=== PATIENT | female | born 1930 | race Caucasian/White ===

== ENCOUNTER 2019-05-18 10:35 | Observation (INO) | payer MEDICARE, OTHER ==
[2019-05-18 11:16] LABS: ABSOLUTE LYMPHOCYTES (AUTO) 1.4 10^3/uL (0.5-4.7); ABSOLUTE MONOCYTES (AUTO) 1.1 10^3/uL (0.1-1.4); ABSOLUTE NEUT (AUTO) 11.2 10^3/uL (1.7-8.2); BASOPHILS % (AUTO) 0.4 % (0-2); HEMATOCRIT 36.2 % (36.0-47.0); HEMOGLOBIN 11.9 g/dL (12.0-15.5); MEAN CORPUSCULAR HEMOGLOBIN 27.9 pg (27.0-33.4); MEAN CORPUSCULAR HGB CONC 32.9 g/dL (32.0-36.0); MEAN CORPUSCULAR VOLUME 85 fl (80-97); PLATELET COUNT 168 10^3/uL (150-450); RED BLOOD COUNT 4.26 10^6/uL (3.72-5.28); RED CELL DISTRIBUTION WIDTH 15.4 % (11.5-14.0); SEGMENTED NEUTROPHILS % (AUTO) 81.6 % (42-78); TOTAL CELLS COUNTED % (AUTO) 100 %; WHITE BLOOD COUNT 13.7 10^3/uL (4.0-10.5)
--- NOTE | 2019-05-18 11:16 | ER Document Report ---
ED General - General Chief Complaint: Altered Mental Status Stated Complaint: ALTERED MENTAL STATUS Time Seen by Provider: 05/18/19 10:58 Primary Care Provider: JUANCHO HERNANDEZ [NO LOCAL MD] - Follow up as needed Information source: Patient, Relative Notes: 88-year-old woman presents to the emergency department with altered mental status and confusion. Apparently she has not eaten in the past 3 days and has become less active. Patient denies chest pain, nausea or vomiting or abdominal pain. She has a past medical history of hypothyroidism, hypertension, lower extremity edema and she lives independently. - Related Data Allergies/Adverse Reactions: No Known Allergies Allergy (Unverified 05/18/19 10:59) Past Medical History - Social History Smoking Status: Unknown if Ever Smoked Patient has suicidal ideation: No Patient has homicidal ideation: No Review of Systems - Review of Systems Notes: REVIEW OF SYSTEMS: CONSTITUTIONAL : Decreased appetite, decreased activity. EENT: Denies eye, ear, throat, or mouth pain or symptoms. Denies nasal or sinus congestion. CARDIOVASCULAR: Denies chest pain. RESPIRATORY: Denies cough, cold, or chest congestion. Denies shortness of breath, difficulty breathing, or wheezing. GASTROINTESTINAL: Denies abdominal pain. Denies nausea, vomiting, or diarrhea. Denies constipation. Last BM: GENITOURINARY: Denies difficulty urinating, painful urination, burning, frequency, or blood in urine. FEMALE GENITOURINARY: Denies vaginal bleeding, abnormal or irregular periods. LMP: MUSCULOSKELETAL: Denies neck or back pain or joint pain or swelling. SKIN: Denies rash or skin lesions. HEMATOLOGIC : Denies easy bruising or bleeding. LYMPHATIC: Denies swollen, enlarged glands. NEUROLOGICAL: +altered mental status , no loss of consciousness. side. Denies problems with gait or speech. Denies sensory or motor loss. PSYCHIATRIC: Denies anxiety or stress or depression. ALL OTHER SYSTEMS REVIEWED AND NEGATIVE. Physical Exam - Vital signs Vitals: Resp BP Pulse Ox 26 H 149/71 H 92 05/18/19 10:43 05/18/19 10:43 05/18/19 10:43 - Notes Notes: Reviewed vital signs and nursing note as charted by RN. CONSTITUTIONAL: Chronically ill appearing elderly female in no acute distress HEAD: Normocephalic; atraumatic; No swelling EYES: PERRL; Conjunctivae clear, no drainage; EOMI ENT: External ears without lesions; External auditory canal is patent; TMs without erythema, landmarks clear and well visualized; no rhinorrhea; Pharynx without erythema or lesions, no tonsillar hypertrophy, airway patent, mucous membranes pink and moist NECK: Supple, no cervical lymphadenopathy, no masses CARD: Tachycardic, no gallops, decreased capillary refill , symmetric pulses RESP: Decreased air movement right compared to left.muscle use. The lungs are clear to auscultation bilaterally, no wheezing, no rales, no rhonchi. ABD/GI: Normal bowel sounds; non-distended; soft, non-tender, no rebound, no guarding, no palpable organomegaly EXT: Normal ROM in all joints; non-tender to palpation; no effusions, no edema SKIN: Normal color for age and race; warm; dry; good turgor; no acute lesions noted NEURO: No facial asymmetry; Moves all extremities equally; Motor and sensory function intact Course - Re-evaluation Re-evalutation: 05/18/19 14:22 88-year-old continued difficulty now fever of 101, rectal Tylenol ordered, 3 2 L nasal cannula O2 also ordered, DuoNeb nebulizer treatment. The patient is being admitted to the hospital for possible sepsis, elevated lactate, white count elevated, now fever and history of confusion. Labs are positive for UTI, chest x-ray reveals right hemidiaphragm elevation and may require CT scan to clarify findings. I have spoken to the hospitalist, Dr. Linda patient will be admitted to the hospital for further evaluation and treatment. - Vital Signs Vital signs: Temp Pulse Resp BP Pulse Ox 101.2 F H 27 H 137/61 H 93 05/18/19 13:51 05/18/19 13:01 05/18/19 13:01 05/18/19 13:01 - Laboratory Result Diagrams: 05/18/19 10:50 05/18/19 10:50 Laboratory results interpreted by me: 05/18/19 05/18/19 05/18/19 10:50 10:50 10:50 WBC 13.7 H Hgb 11.9 L RDW 15.4 H Lymph % (Auto) 10.0 L Absolute Neuts (auto) 11.2 H Seg Neutrophils % 81.6 H PT 15.9 H Carbonic Acid ABG pH ABG pCO2 ABG pO2 ABG O2 Saturation Est GFR (MDRD) Non-Af 54 L Glucose 126 H Lactic Acid Calcium 10.5 H Total Bilirubin 1.5 H Urine Protein Urine Blood Leukocyte Esterase Rfl 05/18/19 05/18/19 05/18/19 10:50 11:30 11:30 WBC Hgb RDW Lymph % (Auto) Absolute Neuts (auto) Seg Neutrophils % PT Carbonic Acid 0.93 L ABG pH 7.49 H ABG pCO2 31.0 L ABG pO2 57.4 L ABG O2 Saturation 92.2 L Est GFR (MDRD) Non-Af Glucose Lactic Acid 2.3 H Calcium Total Bilirubin Urine Protein 100 H Urine Blood MODERATE H Leukocyte Esterase Rfl LARGE H Critical Care Note - Critical Care Note Total time excluding time spent on procedures (mins): 60 - Discussed patient's status with the family and contact the hospitalist for admission. Zosyn, blood cultures lactate and sepsis 30 mL/kg IV fluids are given. Patient is not hypotensive and did appear to be dehydrated versus exam. Discharge - Discharge Clinical Impression: Dehydration, Fever area Sepsis Qualifiers: Sepsis type: sepsis due to unspecified organism Sepsis acute organ dysfunction status: without acute organ dysfunction Qualified Code(s): A41.9 - Sepsis, unspecified organism Condition: Serious Disposition: ADMITTED INPATIENT Admitting Provider: Maddi (Hospitalist) Unit Admitted: Telemetry Referrals: MARY,NO [NO LOCAL MD] - Follow up as needed
[2019-05-18 11:35] LABS: INTERNATIONAL RATION (INR) 1.26; PROTHROMBIN TIME 15.9 SEC (11.4-15.4)
[2019-05-18 11:38] LABS: ALBUMIN 3.8 g/dL (3.5-5.0); ALKALINE PHOSPHATASE 66 U/L (38-126); ANION GAP 11 (5-19); ASPARTATE AMINO TRANSFERASE 20 U/L (14-36); BILIRUBIN,DIRECT 0.4 mg/dL (0.0-0.4); BILIRUBIN,TOTAL 1.5 mg/dL (0.2-1.3); BLOOD UREA NITROGEN 19 mg/dL (7-20); CALCIUM 10.5 mg/dL (8.4-10.2); CARBON DIOXIDE 24 mmol/L (22-30); CHLORIDE 106 mmol/L (98-107); GLUCOSE 126 mg/dL (75-110); POTASSIUM 3.8 mmol/L (3.6-5.0); TOTAL PROTEIN 6.9 g/dL (6.3-8.2)
[2019-05-18] MEDS ORDERED: PIPERACILLIN SODIUM/TAZOBACTAM 4.5 GM in NORMAL SALINE 100 ML IV SCH (12:00)
[2019-05-18] MEDS: NORMAL SALINE 1000 ML 1,000 ML IV PRN ×3 (12:01→16:36)
--- NOTE | 2019-05-18 12:03 | RADIOLOGY REPORT (SQ) ---
EXAM DESCRIPTION: CHEST SINGLE VIEW COMPLETED DATE/TIME: 05/18/2019 11:42 am REASON FOR STUDY: Altered mental status COMPARISON: None. EXAM PARAMETERS: NUMBER OF VIEWS: One view. TECHNIQUE: Single frontal radiographic view of the chest acquired. RADIATION DOSE: NA LIMITATIONS: None. FINDINGS: LUNGS AND PLEURA: No opacities, masses or pneumothorax. No pleural effusion. MEDIASTINUM AND HILAR STRUCTURES: Marked elevation of the right hemidiaphragm. HEART AND VASCULAR STRUCTURES: Cardiac enlargement without failure. BONES: No acute findings. HARDWARE: None in the chest. OTHER: No other significant finding. IMPRESSION: Marked elevation of the right hemidiaphragm. Cardiac enlargement without failure. TECHNICAL DOCUMENTATION: JOB ID: [id number] [employer]- All Rights Reserved Reading location - IP/workstation name: [email or web address]
[2019-05-18 12:26] LABS: ARTERIAL BLOOD BASE EXCESS 0.7 mmol/L; ARTERIAL BLOOD FIO2 ROOM AIR; ARTERIAL BLOOD H2CO3 0.93 mmol/L (1.05-1.35); ARTERIAL BLOOD HCO3 23.1 mmol/L (20-24); ARTERIAL BLOOD O2 SATURATION 92.2 % (94-98); ARTERIAL BLOOD PH 7.49 (7.35-7.45); ARTERIAL BLOOD PO2 57.4 mmHg (80-100)
[2019-05-18 12:29] LABS: APPEARANCE,URINE TURBID; BILIRUBIN,URINE NEGATIVE (NEGATIVE); COLOR,URINE YELLOW; GLUCOSE, URINE NEGATIVE (NEGATIVE); KETONES,URINE NEGATIVE (NEGATIVE); PROTEIN,URINE 100 mg/dL (NEGATIVE); URINE SPECIFIC GRAVITY 1.014; UROBILINOGEN,URINE NEGATIVE mg/dL (<2.0)
[2019-05-18] MEDS ORDERED: ACETAMINOPHEN 325 MG TABLET PO ONE (13:52)
[2019-05-18] MEDS ORDERED: ACETAMINOPHEN 650 MG SUPP.RECT PR ONE (14:06)
[2019-05-18] MEDS ORDERED: IPRATROPIUM/ALBUTEROL 0.5-2.5 MG/3 ML AMPUL NEB ONE (14:30)
--- NOTE | 2019-05-18 15:03 | PDOC H&P ---
History of Present Illness Admission Date/PCP: KENAN YANG MD Patient complains of: weakness, confusion History of Present Illness: MARTIN GIL is a 88 year old female past medical history of hypertension, hypothyroidism and hyperlipidemia who was brought in due to increasing weakness and confusion. Daughter and bedside says that patient has been noted to be increasingly weak in the past 2 days. She said she has also been having waxing and waning confusion and that she thought that her parents were sure. Upon encounter, patient appears comfortable. She is oriented to person but thinks she is in an office. She denies chest pain, shortness of breath. In the ER she was noted to be febrile. She is also noted to have leukocytosis and urinary tract infection. Past Medical History Cardiac Medical History: Reports: Hyperlipidema, Hypertension Past Surgical History Past Surgical History: Reports: Appendectomy, Hysterectomy Social History Smoking Status: Unknown if Ever Smoked Family History Parental Family History Reviewed: Yes - No premature CAD Children Family History Reviewed: No Sibling(s) Family History Reviewed.: No Medication/Allergy Home Medications: Amlodipine Besylate/Benazepril [Amlodipine-Benazepril 5-20 mg] 1 cap PO DAILY 05/18/19 Aspirin [Ecotrin 81 mg EC Tablet] 81 mg PO DAILY 05/18/19 B2/Vit A,C & E/Lut/Zeaxanth/Mn [Icaps Tablet] 1 tab PO DAILY PRN 05/18/19 Furosemide [Lasix 20 mg Tablet] 30 mg PO DAILY 05/18/19 Levothyroxine Sodium 75 mcg PO DAILY 05/18/19 Metoprolol Succinate [Toprol Xl 25 mg Tab.sr] 1 tab PO DAILY 05/18/19 Pravastatin Sodium 20 mg PO QHS 05/18/19 Allergies/Adverse Reactions: No Known Allergies Allergy (Unverified 05/18/19 10:59) Review of Systems All systems: reviewed and no additional remarkable complaints except as stated Physical Exam Vital Signs: Temp Pulse Resp BP Pulse Ox 101.2 F H 27 H 137/61 H 93 05/18/19 13:51 05/18/19 13:01 05/18/19 13:01 05/18/19 13:01 Intake & Output 05/17/19 05/18/19 05/19/19 06:59 06:59 06:59 Intake Total 1100 Balance 1100 Weight 153 lb 14.122 oz General appearance: PRESENT: no acute distress, well-developed, well-nourished Head exam: PRESENT: atraumatic, normocephalic Eye exam: PRESENT: conjunctiva pink, EOMI, PERRLA. ABSENT: scleral icterus Ear exam: PRESENT: normal external ear exam Mouth exam: PRESENT: moist, tongue midline Neck exam: ABSENT: carotid bruit, JVD, lymphadenopathy, thyromegaly Respiratory exam: PRESENT: clear to auscultation florentin. ABSENT: rales, rhonchi, wheezes Cardiovascular exam: PRESENT: RRR. ABSENT: diastolic murmur, rubs, systolic murmur Pulses: PRESENT: normal dorsalis pedis pul GI/Abdominal exam: PRESENT: normal bowel sounds, soft. ABSENT: distended, guarding, mass, organolmegaly, rebound, tenderness Rectal exam: PRESENT: deferred Neurological exam: PRESENT: alert, awake, oriented to person, CN II-XII grossly intact. ABSENT: motor sensory deficit Results Laboratory Results: 05/18/19 10:50 05/18/19 10:50 05/18/19 05/18/19 05/18/19 10:50 10:50 10:50 WBC 13.7 H RBC 4.26 Hgb 11.9 L Hct 36.2 MCV 85 MCH 27.9 MCHC 32.9 RDW 15.4 H Plt Count 168 Seg Neutrophils % 81.6 H Carbonic Acid HCO3/H2CO3 Ratio ABG pH ABG pCO2 ABG pO2 ABG HCO3 ABG O2 Saturation ABG Base Excess FiO2 Sodium 141.1 Potassium 3.8 Chloride 106 Carbon Dioxide 24 Anion Gap 11 BUN 19 Creatinine 0.97 Est GFR ( Amer) > 60 Glucose 126 H Lactic Acid 2.3 H Calcium 10.5 H Total Bilirubin 1.5 H AST 20 Alkaline Phosphatase 66 Total Protein 6.9 Albumin 3.8 Urine Color Urine Appearance Urine pH Ur Specific [place] Urine Protein Urine Glucose (UA) Urine Ketones Urine Blood Urine RBC (Auto) 05/18/19 05/18/19 11:30 11:30 WBC RBC Hgb Hct MCV MCH MCHC RDW Plt Count Seg Neutrophils % Carbonic Acid 0.93 L HCO3/H2CO3 Ratio 24:1 ABG pH 7.49 H ABG pCO2 31.0 L ABG pO2 57.4 L ABG HCO3 23.1 ABG O2 Saturation 92.2 L ABG Base Excess 0.7 FiO2 ROOM AIR Sodium Potassium Chloride Carbon Dioxide Anion Gap BUN Creatinine Est GFR ( Amer) Glucose Lactic Acid Calcium Total Bilirubin AST Alkaline Phosphatase Total Protein Albumin Urine Color YELLOW Urine Appearance TURBID Urine pH 6.0 Ur Specific [place] 1.014 Urine Protein 100 H Urine Glucose (UA) NEGATIVE Urine Ketones NEGATIVE Urine Blood MODERATE H Urine RBC (Auto) 17 Impressions: Chest X-Ray 05/18/19 10:59 IMPRESSION: Marked elevation of the right hemidiaphragm. Cardiac enlargement without failure. Assessment and Plan - Diagnosis (1) Acute encephalopathy Is this a current diagnosis for this admission?: Yes Plan: Secondary to urinary tract infection in an elderly patient. (2) Urinary tract infection Is this a current diagnosis for this admission?: Yes Plan: Start Rocephin. Urine and blood cultures sent. (3) Hypertension Is this a current diagnosis for this admission?: Yes Plan: Hold antihypertensives for now due to recent BP on the low normal end. (4) Hypothyroidism Is this a current diagnosis for this admission?: Yes Plan: Resume Synthroid. - Time Time Spent with patient: 25-34 minutes
--- NOTE | 2019-05-18 15:04 | ADVANCED CARE ---
- Diagnosis (1) Acute encephalopathy Diagnosis Current: Yes (2) Urinary tract infection Diagnosis Current: Yes (3) Hypertension Diagnosis Current: Yes (4) Hypothyroidism Diagnosis Current: Yes Resuscitation Status: Full Code Discussion: Daughter on bedside, Leila says that she and her older brother are the patient's surrogate medical decision makers. She says that patient is a full code at this time.
[2019-05-18] MEDS: CEFTRIAXONE 1 GM/D5W RTU 1 GM/50 ML RTUPB IV SCH (16:35)
[2019-05-18] MEDS: HEPARIN SOD (PORCINE) 5,000 UNIT/ML 1 ML VIAL SUBCUT SCH (21:03)
[2019-05-18] MEDS: ATORVASTATIN CALCIUM 10 MG TABLET PO SCH (21:03)
[2019-05-18] MEDS ORDERED: (PENDING PHARMACY ID) (Pravastatin Sodium [Pravastatin Sodium] 20 MG) PO SCH (22:00)
--- NOTE | 2019-05-18 22:04 | EKG REPORT ---
SEVERITY:- ABNORMAL ECG - SINUS TACHYCARDIA LEFT ANTERIOR FASCICULAR BLOCK CONSIDER LEFT VENTRICULAR HYPERTROPHY : Confirmed by: Arnulfo Jason 18-May-2019 22:03:18
[2019-05-19] MEDS: NORMAL SALINE 1000 ML 1,000 ML IV PRN ×2 (05:49→20:08)
[2019-05-19 09:57] LABS: FREE T3 1.64 pg/mL (2.77-5.27); FREE T4 (FREE THYROXINE) 1.44 ng/dL (0.78-2.19)
[2019-05-19] MEDS ORDERED: AMLODIPINE BESYLATE 5 MG TABLET PO SCH (10:00)
[2019-05-19] MEDS ORDERED: BENAZEPRIL HCL 20 MG TABLET PO SCH (10:00)
[2019-05-19] MEDS ORDERED: (PENDING PHARMACY ID) (Amlodipine Besylate/Benazepril [Amlodipine-Benazepril 5-20 Mg] 1 CA PO SCH (10:00)
[2019-05-19] MEDS ORDERED: METOPROLOL SUCCINATE 25 MG TAB.SR.24H PO SCH (10:00)
[2019-05-19] MEDS ORDERED: (PENDING PHARMACY ID) (B2/Vit A,C & E/Lut/Zeaxanth/Mn [Icaps Tablet] 1 TAB) PO SCH (10:00)
[2019-05-19] MEDS: FUROSEMIDE 20 MG TABLET PO SCH (10:12)
[2019-05-19] MEDS: HEPARIN SOD (PORCINE) 5,000 UNIT/ML 1 ML VIAL SUBCUT SCH ×2 (10:12→21:23)
[2019-05-19] MEDS: LEVOTHYROXINE SODIUM 0.075 MG TABLET PO SCH (10:12)
[2019-05-19] MEDS: ASPIRIN 81 MG TABLET, ENT COATED PO SCH (10:12)
[2019-05-19] MEDS: IPRATROPIUM/ALBUTEROL 0.5-2.5 MG/3 ML AMPUL NEB PRN ×2 (11:25→18:16)
--- NOTE | 2019-05-19 12:43 | PDOC PROGRESS REPORT ---
Subjective Progress Note for:: 05/19/19 Subjective:: This is an 88-year-old female who was admitted for acute encephalopathy likely related to urinary tract infection. No acute event overnight. On encounter this morning, she appears more conversant and coherent. She is oriented to person and place. She knows that it is 2019. Blood cultures growing gram-negative rods 1/2 bottles. Reason For Visit: ACUTE ENCEPHALOPATHY, UTI Physical Exam Vital Signs: Temp Pulse Resp BP Pulse Ox 98.1 F 100 16 135/60 H 99 05/19/19 10:49 05/19/19 11:25 05/19/19 11:25 05/19/19 10:49 05/19/19 11:25 Intake & Output 05/18/19 05/19/19 05/20/19 06:59 06:59 06:59 Intake Total 3401 Output Total 200 Balance 3201 Weight 148 lb 2.41 oz General appearance: PRESENT: no acute distress, well-developed, well-nourished Head exam: PRESENT: atraumatic, normocephalic Eye exam: PRESENT: conjunctiva pink, EOMI, PERRLA. ABSENT: scleral icterus Ear exam: PRESENT: normal external ear exam Mouth exam: PRESENT: moist, tongue midline Neck exam: ABSENT: carotid bruit, JVD, lymphadenopathy, thyromegaly Respiratory exam: PRESENT: clear to auscultation florentin. ABSENT: rales, rhonchi, wheezes Cardiovascular exam: PRESENT: RRR. ABSENT: diastolic murmur, rubs, systolic murmur Pulses: PRESENT: normal dorsalis pedis pul GI/Abdominal exam: PRESENT: normal bowel sounds, soft. ABSENT: distended, guarding, mass, organolmegaly, rebound, tenderness Rectal exam: PRESENT: deferred Extremities exam: PRESENT: full ROM. ABSENT: calf tenderness, clubbing, pedal edema Neurological exam: PRESENT: alert, awake, oriented to person, oriented to place, oriented to time, CN II-XII grossly intact. ABSENT: motor sensory deficit Results Laboratory Results: 05/18/19 10:50 05/18/19 10:50 05/18/19 05/18/19 05/18/19 10:50 10:50 11:30 Carbonic Acid 0.93 L HCO3/H2CO3 Ratio 24:1 ABG pH 7.49 H ABG pCO2 31.0 L ABG pO2 57.4 L ABG HCO3 23.1 ABG O2 Saturation 92.2 L ABG Base Excess 0.7 FiO2 ROOM AIR Lactic Acid TSH 0.27 L Free T4 1.44 Free T3 pg/mL 1.64 L Urine Color Urine Appearance Urine pH Ur Specific [place] Urine Protein Urine Glucose (UA) Urine Ketones Urine Blood Urine RBC (Auto) 05/18/19 05/18/19 11:30 17:00 Carbonic Acid HCO3/H2CO3 Ratio ABG pH ABG pCO2 ABG pO2 ABG HCO3 ABG O2 Saturation ABG Base Excess FiO2 Lactic Acid 1.2 TSH Free T4 Free T3 pg/mL Urine Color YELLOW Urine Appearance TURBID Urine pH 6.0 Ur Specific [place] 1.014 Urine Protein 100 H Urine Glucose (UA) NEGATIVE Urine Ketones NEGATIVE Urine Blood MODERATE H Urine RBC (Auto) 17 Impressions: Chest X-Ray 05/18/19 10:59 IMPRESSION: Marked elevation of the right hemidiaphragm. Cardiac enlargement without failure. Assessment and Plan - Diagnosis (1) Acute encephalopathy Is this a current diagnosis for this admission?: Yes Plan: Resolving. Secondary to urinary tract infection in an elderly patient. (2) Urinary tract infection Is this a current diagnosis for this admission?: Yes Plan: Blood cultures growing gram-negative rods 1/2 bottles. Continue Rocephin. (3) Hypertension Is this a current diagnosis for this admission?: Yes Plan: Resume amlodipine and Toprol. (4) Hypothyroidism Is this a current diagnosis for this admission?: Yes Plan: Resumed Synthroid. - Time Time Spent with patient: 25-34 minutes
[2019-05-19] MEDS: AMLODIPINE BESYLATE 5 MG TABLET PO SCH (13:31)
[2019-05-19] MEDS: CEFTRIAXONE 1 GM/D5W RTU 1 GM/50 ML RTUPB IV SCH (17:56)
[2019-05-19] MEDS: ATORVASTATIN CALCIUM 10 MG TABLET PO SCH (21:24)
[2019-05-20] MEDS: IPRATROPIUM/ALBUTEROL 0.5-2.5 MG/3 ML AMPUL NEB PRN (09:05)
[2019-05-20] MEDS ORDERED: METOPROLOL SUCCINATE 25 MG TAB.SR.24H PO SCH (10:00)
[2019-05-20] MEDS: HEPARIN SOD (PORCINE) 5,000 UNIT/ML 1 ML VIAL SUBCUT SCH (10:25)
[2019-05-20] MEDS: AMLODIPINE BESYLATE 5 MG TABLET PO SCH (10:27)
[2019-05-20] MEDS: ASPIRIN 81 MG TABLET, ENT COATED PO SCH (10:27)
[2019-05-20] MEDS: FUROSEMIDE 20 MG TABLET PO SCH (10:27)
[2019-05-20] MEDS: LEVOTHYROXINE SODIUM 0.075 MG TABLET PO SCH (10:28)
[2019-05-20] MEDS ORDERED: AMOXICILLIN TR/POT CLAVULANATE 500-125 MG TAB PO ONE (10:30)
[2019-05-20 13:29] VITALS: BP 132/63
--- NOTE | 2019-05-20 15:04 | PDOC DISCHARGE SUMMARY ---
Impression - Admit/DC Date/PCP Admission Date/Primary Care Provider: 05/18/19 14:49 KENAN YANG MD Discharge Date: 05/20/19 - Discharge Diagnosis (1) Acute encephalopathy Is this a current diagnosis for this admission?: Yes (2) Urinary tract infection Is this a current diagnosis for this admission?: Yes (3) Hypertension Is this a current diagnosis for this admission?: Yes (4) Hypothyroidism Is this a current diagnosis for this admission?: Yes - Additional Information Resuscitation Status: Full Code Discharge Diet: As Tolerated Discharge Activity: Activity As Tolerated, Balance Activity w/Rest Referrals: KENAN YANG MD [Primary Care Provider] - 06/13/19 3:00 pm (CHECK IN AT 2:45 ,AND SHE CAN CALL TO CHECK TO SEE IF ANT CANCELATIONS HAVE OCCURRED.) Prescriptions: Amoxicillin/Potassium Clav [Augmentin 500-125 Tablet] 1 each PO Q8H 7 Days #21 tablet Home Medications: Amlodipine Besylate/Benazepril [Amlodipine-Benazepril 5-20 mg] 1 cap PO DAILY 05/18/19 Aspirin [Ecotrin 81 mg EC Tablet] 81 mg PO DAILY 05/18/19 B2/Vit A,C & E/Lut/Zeaxanth/Mn [Icaps Tablet] 1 tab PO DAILY PRN 05/18/19 Furosemide [Lasix 20 mg Tablet] 30 mg PO DAILY 05/18/19 Levothyroxine Sodium 75 mcg PO DAILY 05/18/19 Metoprolol Succinate [Toprol Xl 25 mg Tab.sr] 1 tab PO DAILY 05/18/19 Pravastatin Sodium 20 mg PO QHS 05/18/19 Amoxicillin/Potassium Clav [Augmentin 500-125 Tablet] 1 each PO Q8H 7 Days #21 tablet 05/20/19 History of Present Illiness History of Present Illness: MARTIN GIL is a 88 year old female past medical history of hypertension, hypothyroidism and hyperlipidemia who was brought in due to increasing weakness and confusion. Daughter and bedside says that patient has been noted to be increasingly weak in the past 2 days. She said she has also been having waxing and waning confusion and that she thought that her parents were sure. Upon encounter, patient appears comfortable. She is oriented to person but thinks she is in an office. She denies chest pain, shortness of breath. In the ER she was noted to be febrile. She is also noted to have leukocytosis and urinary tract infection. Hospital Course Hospital Course: This is an 88-year-old female who was admitted for acute encephalopathy likely related to urinary tract infection. She was started on IV fluids and IV antibiotics. She promptly and significantly improved with above treatments overnight. She returned to her baseline. Blood culture (07/11) and urine culture grew pansensitive E. coli. She will be discharged on 5 more days of Augmentin. Physical Exam Vital Signs: Temp Pulse Resp BP Pulse Ox 98.1 F 102 H 20 132/63 H 97 05/20/19 13:25 05/20/19 13:25 05/20/19 13:25 05/20/19 13:25 05/20/19 13:25 Intake & Output 05/19/19 05/20/19 05/21/19 06:59 06:59 06:59 Intake Total 3401 1817 971 Output Total 200 1400 Balance 3201 417 971 Weight 148 lb 2.41 oz 157 lb 3.033 oz General appearance: PRESENT: no acute distress, well-developed, well-nourished Head exam: PRESENT: atraumatic, normocephalic Eye exam: PRESENT: conjunctiva pink, EOMI, PERRLA. ABSENT: scleral icterus Ear exam: PRESENT: normal external ear exam Mouth exam: PRESENT: moist, tongue midline Neck exam: ABSENT: carotid bruit, JVD, lymphadenopathy, thyromegaly Respiratory exam: PRESENT: clear to auscultation florentin. ABSENT: rales, rhonchi, wheezes Cardiovascular exam: PRESENT: RRR. ABSENT: diastolic murmur, rubs, systolic murmur Pulses: PRESENT: normal dorsalis pedis pul GI/Abdominal exam: PRESENT: normal bowel sounds, soft. ABSENT: distended, guarding, mass, organolmegaly, rebound, tenderness Rectal exam: PRESENT: deferred Neurological exam: PRESENT: alert, awake, oriented to person, oriented to place, oriented to situation, CN II-XII grossly intact. ABSENT: motor sensory deficit Results Laboratory Results: WBC 13.7 10^3/uL (4.0-10.5) H 05/18/19 10:50 RBC 4.26 10^6/uL (3.72-5.28) 05/18/19 10:50 Hgb 11.9 g/dL (12.0-15.5) L 05/18/19 10:50 Hct 36.2 % (36.0-47.0) 05/18/19 10:50 MCV 85 fl (80-97) 05/18/19 10:50 MCH 27.9 pg (27.0-33.4) 05/18/19 10:50 MCHC 32.9 g/dL (32.0-36.0) 05/18/19 10:50 RDW 15.4 % (11.5-14.0) H 05/18/19 10:50 Plt Count 168 10^3/uL (150-450) 05/18/19 10:50 Lymph % (Auto) 10.0 % (13-45) L 05/18/19 10:50 [place] % (Auto) 8.0 % (3-13) 05/18/19 10:50 Eos % (Auto) 0.0 % (0-6) 05/18/19 10:50 Baso % (Auto) 0.4 % (0-2) 05/18/19 10:50 Absolute Neuts (auto) 11.2 10^3/uL (1.7-8.2) H 05/18/19 10:50 Absolute Lymphs (auto) 1.4 10^3/uL (0.5-4.7) 05/18/19 10:50 Absolute Monos (auto) 1.1 10^3/uL (0.1-1.4) 05/18/19 10:50 Absolute Eos (auto) 0.0 10^3/uL (0.0-0.6) 05/18/19 10:50 Absolute Basos (auto) 0.0 10^3/uL (0.0-0.2) 05/18/19 10:50 Seg Neutrophils % 81.6 % (42-78) H 05/18/19 10:50 PT 15.9 SEC (11.4-15.4) H 05/18/19 10:50 INR 1.26 05/18/19 10:50 Carbonic Acid 0.93 mmol/L (1.05-1.35) L 05/18/19 11:30 HCO3/H2CO3 Ratio 24:1 05/18/19 11:30 ABG pH 7.49 (7.35-7.45) H 05/18/19 11:30 ABG pCO2 31.0 mmHg (35-45) L 05/18/19 11:30 ABG pO2 57.4 mmHg (80-100) L 05/18/19 11:30 ABG HCO3 23.1 mmol/L (20-24) 05/18/19 11:30 ABG Total CO2 24.0 mmol/L (21-25) 05/18/19 11:30 ABG O2 Saturation 92.2 % (94-98) L 05/18/19 11:30 ABG Base Excess 0.7 mmol/L 05/18/19 11:30 FiO2 ROOM AIR 05/18/19 11:30 Sodium 141.1 mmol/L (137-145) 05/18/19 10:50 Potassium 3.8 mmol/L (3.6-5.0) 05/18/19 10:50 Chloride 106 mmol/L (98-107) 05/18/19 10:50 Carbon Dioxide 24 mmol/L (22-30) 05/18/19 10:50 Anion Gap 11 (5-19) 05/18/19 10:50 BUN 19 mg/dL (7-20) 05/18/19 10:50 Creatinine 0.97 mg/dL (0.52-1.25) 05/18/19 10:50 Est GFR ( Amer) > 60 (>60) 05/18/19 10:50 Est GFR (MDRD) Non-Af 54 (>60) L 05/18/19 10:50 Glucose 126 mg/dL (75-110) H 05/18/19 10:50 Lactic Acid 1.2 mmol/L (0.7-2.1) 05/18/19 17:00 Calcium 10.5 mg/dL (8.4-10.2) H 05/18/19 10:50 Total Bilirubin 1.5 mg/dL (0.2-1.3) H 05/18/19 10:50 Direct Bilirubin 0.4 mg/dL (0.0-0.4) 05/18/19 10:50 Neonat Total Bilirubin Not Reportable 05/18/19 10:50 Neonat Direct Bilirubin Not Reportable 05/18/19 10:50 Neonat Indirect Bili Not Reportable 05/18/19 10:50 AST 20 U/L (14-36) 05/18/19 10:50 ALT 14 U/L (<35) 05/18/19 10:50 Alkaline Phosphatase 66 U/L (38-126) 05/18/19 10:50 Total Protein 6.9 g/dL (6.3-8.2) 05/18/19 10:50 Albumin 3.8 g/dL (3.5-5.0) 05/18/19 10:50 TSH 0.27 uIU/mL (0.47-4.68) L 05/18/19 10:50 Free T4 1.44 ng/dL (0.78-2.19) 05/18/19 10:50 Free T3 pg/mL 1.64 pg/mL (2.77-5.27) L 05/18/19 10:50 Urine Color YELLOW 05/18/19 11:30 Urine Appearance TURBID 05/18/19 11:30 Urine pH 6.0 (5.0-9.0) 05/18/19 11:30 Ur Specific [place] 1.014 05/18/19 11:30 Urine Protein 100 mg/dL (NEGATIVE) H 05/18/19 11:30 Urine Glucose (UA) NEGATIVE mg/dL (NEGATIVE) 05/18/19 11:30 Urine Ketones NEGATIVE mg/dL (NEGATIVE) 05/18/19 11:30 Urine Blood MODERATE (NEGATIVE) H 05/18/19 11:30 Urine Nitrite (Reflex) NEGATIVE (NEGATIVE) 05/18/19 11:30 Urine Bilirubin NEGATIVE (NEGATIVE) 05/18/19 11:30 Urine Urobilinogen NEGATIVE mg/dL (<2.0) 05/18/19 11:30 Leukocyte Esterase Rfl LARGE (NEGATIVE) H 05/18/19 11:30 Urine RBC (Auto) 17 /HPF 05/18/19 11:30 Urine Bacteria (Auto) 3+ /HPF 05/18/19 11:30 Urine WBC (Reflex) > 182 /HPF 05/18/19 11:30 Urine WBC Clumps MANY /HPF 05/18/19 11:30 U Non-Squamous Epis Auto 2 /HPF 05/18/19 11:30 Urine Ascorbic Acid NEGATIVE (NEGATIVE) 05/18/19 11:30 Impressions: Chest X-Ray 05/18/19 10:59 IMPRESSION: Marked elevation of the right hemidiaphragm. Cardiac enlargement without failure. Stroke Is this a Stroke Patient?: No Acute Heart Failure - Is this a Heart Failure Patient?: No
[2019-05-21] MEDS ORDERED: LEVOTHYROXINE SODIUM 0.075 MG TABLET PO SCH (06:00)
== END 2019-05-20 14:00 | disposition home health service (06) ==
LOC: ER 10:35 → EH 14:49 → 4N 17:35
PROVIDERS: ADMIT Internal Medicine; ATTEND Internal Medicine
DX: G93.40 Encephalopathy, unspecified (principal); N39.0 Urinary tract infection, site not specified; B96.29 Other Escherichia coli [E. coli] as the cause of diseases classified elsewhere; I10 Essential (primary) hypertension; E03.9 Hypothyroidism, unspecified; E78.5 Hyperlipidemia, unspecified; J98.6 Disorders of diaphragm; E86.0 Dehydration; Z79.82 Long term (current) use of aspirin; Z79.899 Other long term (current) drug therapy; Z90.49 Acquired absence of other specified parts of digestive tract; Z90.710 Acquired absence of both cervix and uterus; Z60.2 Problems related to living alone
CPT/HCPCS: 94640 ×3; 99291; 96361; 51701; 96365; 96367; 36415; 87040; 87086; 84439; 82803; 84443; 85025; 85610; 87077; 87088; 80053; 81001; 87186; 84481; 83605; 71045; 93005; 93010; G0378 ×4; A9270 ×16; J1644 ×3; J3490 ×3; J7050; J7030 ×2; J0696 ×2; J2543; 87150; J7620